=== PATIENT | male | born 1950 | race Caucasian/White ===

== ENCOUNTER 2018-07-30 09:55 | Outpatient (CLI) | payer MEDICARE, BC ==
--- NOTE | 2018-07-30 11:50 | ULT ---
ABDOMINAL AORTIC ULTRASOUND: Indication: Abdominal aortic aneurysm screening. Technique: Grayscale, color doppler and spectral doppler images were obtained of the abdominal aorta. FINDINGS: The proximal abdominal aorta measures 1.8 cm in its greatest AP dimension. The midabdominal aorta will sures 1.9 cm in its greatest dimension. The distal abdominal aorta measures 1.7 cm. There is antegrad e waveforms seen within the abdominal aorta. IMPRESSION: No evidence of aneurysmal dilatation of the abdominal aorta. POS: [facility]
== END 2018-07-30 09:56 | disposition home or self-care (01) ==
LOC: SCSULT 09:55
PROVIDERS: ATTEND Family Medicine
DX: Z13.6 Encounter for screening for cardiovascular disorders (principal)
CPT/HCPCS: 76706

== ENCOUNTER 2018-08-13 08:18 | Outpatient (CLI) | payer MEDICARE, BC ==
--- NOTE | 2018-08-13 10:11 | CT ---
LOW DOSE CT PULMONARY LUNG SCAN: CT CHEST NONCONTRAST: INDICATIONS: Pulmonary screening. History of prior smoking. FINDINGS: There is a 6 mm ground glass, noncalcified nodule of the lateral subpleural aspect of the right middl e lobe. Additional multifocal punctate areas of subpleural nodularity are present, superimposed upon subpleural ground glass and mild interstitial prominence. No effusion or lobar consolidation. Ther e is vascular disease. Scattered osseous degenerative changes are present. There is a focal kyphosi s of the lower thoracic spine, with partial osseous fusion and anterior wedging, resulting in the foc al area of kyphosis. Evidence of prior granulomatous disease with scattered calcifications. IMPRESSION: Lung-RADS category 8-[id number] followup is suggested. 6 month follow-up low dose screening CT is recommended for documentation of size stability. CODE LN POS: [facility]
== END 2018-08-13 08:19 | disposition home or self-care (01) ==
LOC: CT 08:18
PROVIDERS: ATTEND Family Medicine
DX: Z87.891 Personal history of nicotine dependence (principal)
CPT/HCPCS: G0297

== ENCOUNTER 2019-08-14 11:41 | Outpatient (CLI) | payer MEDICARE, BC ==
--- NOTE | 2019-08-14 14:21 | CT ---
CT LOW DOSE LUNG SCAN PERFORMED WITHOUT CONTRAST: Date: 08/14/19 HISTORY: Follow-up of 6 mm ground-glass nodule right middle lobe. Smoker for 35 years. COMPARISON: 08/13/18 study. FINDINGS: The lungs are clear of any infiltrative process. No pleural effusions are identified. The lateral segment right middle lobe pulmonary nodule, which is pleural based, seen on axial image 1 58, is stable at 6-7 mm. There are no new nodules identified. This density actually has somewhat more of a linear than nodular component when viewed on the sagittal images and coronal views, and probabl y just represents scar. Calcified hilar and mediastinal lymph nodes are seen. There are coronary artery calcifications noted. Visualized liver parenchyma shows no focal finding. IMPRESSION: 1. Lung-RADS Category 2. Recommend continued 12 month follow-up. 2. Subcategory S. This is related to the presence of coronary calcifications. POS: [facility]
== END 2019-08-14 11:42 | disposition home or self-care (01) ==
LOC: CT 11:41
PROVIDERS: ATTEND Family Medicine
DX: Z87.891 Personal history of nicotine dependence (principal); I25.10 Atherosclerotic heart disease of native coronary artery without angina pectoris; R91.1 Solitary pulmonary nodule
CPT/HCPCS: G0297

== ENCOUNTER 2019-08-17 16:18 | Inpatient (IN) | payer MEDICARE, BC ==
[2019-08-17] MEDS ORDERED: Acetaminophen 500 MG TAB ONE (16:31)
--- NOTE | 2019-08-17 17:10 | RAD ---
EXAM: Chest 2 views: HISTORY: Fever COMPARISON: Chest CT, 08/14/2019 FINDINGS: Evidence for kyphosis at the upper lumbar thoracic vertebral column. Heart size:Within normal limits. Lungs:Clear of acute process. Atherosclerotic changes of the aorta. No confluent pneumonia, overt edema, pleural effusion, pneumothorax, or other significant acute proce ss. IMPRESSION: Stable exam. Atherosclerosis of the aorta. No acute intrathoracic disease.
[2019-08-17 17:17] LABS: Band 39 % (5-11); Lymphocytes 1 % (21-51); MDiff Complete? YES; Mean Corpuscular HGB CONC 35.4 g/dL (32.0-36.0); Mean Corpuscular Hemoglobin 32.6 pg (27.0-31.0); Mean Corpuscular Volume 92.2 fL (78.0-98.0); Mean Platelet Volume 6.8 fL (7.4-10.4); Monocytes 2 % (0-10); Neutrophil 57 % (42-75); Platelet Count 125 thou/uL (130-400); Platelet Morphology Comment Appears Decreased; RBC Distribution Width 11.3 % (11.5-14.5); Red Blood Cell (RBC) Count 4.59 mill/uL (4.70-6.10); White Blood Cell (WBC) Count 12.5 thou/uL (4.8-10.8)
[2019-08-17 17:23] LABS: ALT (SGPT) 30 U/L (8-55); AST (SGOT) 40 U/L (5-34); Alkaline Phosphatase 46 U/L (40-110); Anion Gap 18 mmol/L (10-20); BUN (Urea Nitrogen) 24 mg/dL (8.4-25.7); Bilirubin, Total 0.9 mg/dL (0.2-1.2); Calc. Creatinine Clearance 0 mL/min (70-130); Calcium 9.1 mg/dL (7.8-10.44); Carbon Dioxide 19 mmol/L (23-31); Chloride 105 mmol/L (98-107); Estimated GFR-MDRD 57; Globulin 2.8 g/dL (2.4-3.5); Glucose 127 mg/dL (80-115); Potassium 3.8 mmol/L (3.5-5.1); Protein, Total 6.8 g/dL (5.8-8.1); Sodium 138 mmol/L (136-145)
[2019-08-17 17:40] LABS: CKMB 1.4 ng/mL (0-6.6)
[2019-08-17] MEDS ORDERED: Piperacillin/Tazobactam 4.5 GM VIAL ONE (18:09)
[2019-08-17] MEDS ORDERED: Sodium Chloride 0.9% 100 ML ONE (18:11)
[2019-08-17 18:37] LABS: Bilirubin Small (Negative); Blood, Urine Negative (Negative); Clarity Slightly Cloudy (Clear); Glucose, Urine (Dipstick) Negative (Negative); Leukocyte Negative (Negative); Nitrite Negative (Negative); Protein, Urine (Dipstick) 30 mg/dL (Neg-Trace); Urobilinogen 0.2 mg/dL (Less than 2)
[2019-08-17 18:39] LABS: Bacteria/HPF Rare-Few HPF (None Seen); RBC/HPF 0-3 HPF (0-3); Squamous Epithelial 0-3 HPF (0-3); WBC/HPF 0-3 HPF (0-3)
[2019-08-17 18:40] LABS: Mucous/LPF 1+ LPF (<2+)
[2019-08-17 19:49] LABS: Troponin I 0.046 ng/mL (< 0.028)
[2019-08-17] MEDS ORDERED: Sodium Chloride 0.9% 1,000 ML IV SCH (22:15)
[2019-08-17] MEDS ORDERED: Ondansetron ODT 4 MG TAB PO PRN (22:22)
[2019-08-17] MEDS ORDERED: Acetaminophen 325 MG TAB PO PRN (22:22)
[2019-08-17] MEDS: Sodium Chloride 0.9% 1,000 ML IV SCH (22:54)
--- NOTE | 2019-08-17 23:00 | PDOC.EVN ---
Event Note - Event Note Event Note: [id number]
[2019-08-17 23:07] LABS: Troponin I 0.025 ng/mL (< 0.028)
[2019-08-17 23:17] VITALS: BMI 27.0
[2019-08-17] MEDS: Piperacillin/Tazobactam 3.375 GM in Sodium Chloride 0.9% 100 ML IVPB SCH (23:33)
--- NOTE | 2019-08-17 23:37 | HP ---
CHIEF COMPLAINT: Nausea and fever. HISTORY OF PRESENT ILLNESS: Mr. Moss is a 68-year-old male with past medical history of hypertension, proteinuria? on ramipril, hyperlipidemia, presented to the emergency room with nausea, fever, and chills that started last night. The patient initially went to Urgent Care, where his blood pressure was low and systolic in the 80s. The patient was started on IV fluids. In the emergency room, patient's systolic blood pressure was 100. The patient had fever as high as 103.9. Also, there was change in his mental status as per family. Workup in the emergency room including chest x-ray, urinalysis unremarkable. The patient continued IV fluids. Septic workup done including blood cultures. The patient is started on IV antibiotic. The patient is being admitted to the hospital for further management. PAST MEDICAL HISTORY: 1. Hypertension. 2. Hyperlipidemia. 3. Proteinuria. PAST SURGICAL HISTORY: Tonsillectomy. SOCIAL HISTORY: Denies smoking, alcohol drinking, or drug abuse. FAMILY HISTORY: Reviewed and noncontributory. ALLERGIES: NO KNOWN ALLERGIES. HOME MEDICATIONS: Please see home medication reconciliation form for updated medications. REVIEW OF SYSTEMS: Review of 14 systems negative except what is mentioned in the history of present illness. PHYSICAL EXAMINATION: GENERAL: The patient is awake, alert. VITAL SIGNS: Temperature 100.7, T-max 103.9, blood pressure 102/64, pulse 76, respiratory rate is 16, pulse oximetry 95%. HEAD AND NECK: Normocephalic and atraumatic. Neck is supple. No JVD. CHEST: Fair with bilateral air entry. HEART: S1, S2. Regular. ABDOMEN: Soft, nontender. Bowel sounds present. NEUROLOGIC: Awake, alert, oriented x3. PSYCH: Normal mood. EXTREMITIES: No clubbing or cyanosis. LABORATORY DATA: WBC count is 12.5 with 39% bands, platelets 125, hemoglobin 15, glucose is 127, AST is 40. Initial troponin is 0.05, repeated troponin 0.04. ASSESSMENT: 1. Fever, source?.. 2. Nausea. 3. Bandemia. 4. Hypotension. 5. History of hypertension. 6. Hyperlipidemia. PLAN: 1. Admit. 2. Septic workup including blood cultures. 3. The patient is started on IV Zosyn, will continue for now. 4. IV fluid hydration. 5. If fever persists, consider Infectious Disease consultation in a.m. 6. Reconcile home medications. 7. DVT prophylaxis. Low molecular weight heparin. 8. Expected length of stay two midnights or more. Job ID: [id number]
[2019-08-18] MEDS: Piperacillin/Tazobactam 3.375 GM in Sodium Chloride 0.9% 100 ML IVPB SCH (05:07)
[2019-08-18] MEDS: Sodium Chloride 0.9% 1,000 ML IV SCH ×4 (05:09→23:55)
[2019-08-18 05:58] LABS: ALT (SGPT) 46 U/L (8-55); AST (SGOT) 79 U/L (5-34); Albumin 3.3 g/dL (3.4-4.8); Alkaline Phosphatase 31 U/L (40-110); Anion Gap 9 mmol/L (10-20); BUN (Urea Nitrogen) 22 mg/dL (8.4-25.7); Bilirubin, Total 0.9 mg/dL (0.2-1.2); Calc. Creatinine Clearance 81 mL/min (70-130); Calcium 7.9 mg/dL (7.8-10.44); Carbon Dioxide 24 mmol/L (23-31); Chloride 110 mmol/L (98-107); Estimated GFR-MDRD 68; Globulin 2.3 g/dL (2.4-3.5); Glucose 126 mg/dL (80-115); Potassium 4.2 mmol/L (3.5-5.1); Protein, Total 5.6 g/dL (5.8-8.1); Sodium 139 mmol/L (136-145)
[2019-08-18 06:49] LABS: Hemoglobin 13.3 g/dL (14.0-18.0); Mean Corpuscular HGB CONC 33.5 g/dL (32.0-36.0); Mean Corpuscular Hemoglobin 31.6 pg (27.0-31.0); Mean Corpuscular Volume 94.1 fL (78.0-98.0); Mean Platelet Volume 7.9 fL (7.4-10.4); Platelet Count 86 thou/uL (130-400); RBC Distribution Width 11.6 % (11.5-14.5); White Blood Cell (WBC) Count 13.2 thou/uL (4.8-10.8)
[2019-08-18 07:38] LABS: Band 61 % (5-11); Lymphocytes 2 % (21-51); MDiff Complete? YES; Metamyelocyte 4 % (0-0); Monocytes 1 % (0-10); Neutrophil 32 % (42-75); Platelet Morphology Comment Appears Decreased; Polychromasia SLIGHT = 2-3 cells (100X) (0-2/hpf); Vacuoles SLIGHT
[2019-08-18 09:06] LABS: Band 60 % (5-11); Hemoglobin 13.6 g/dL (14.0-18.0); Lymphocytes 5 % (21-51); MDiff Complete? YES; Mean Corpuscular HGB CONC 34.2 g/dL (32.0-36.0); Mean Corpuscular Hemoglobin 32.7 pg (27.0-31.0); Mean Corpuscular Volume 95.7 fL (78.0-98.0); Mean Platelet Volume 7.7 fL (7.4-10.4); Metamyelocyte 1 % (0-0); Monocytes 2 % (0-10); Neutrophil 32 % (42-75); Platelet Count 86 thou/uL (130-400); Platelet Morphology Comment Appears Decreased; Polychromasia SLIGHT = 2-3 cells (100X) (0-2/hpf); RBC Distribution Width 11.6 % (11.5-14.5); Red Blood Cell (RBC) Count 4.14 mill/uL (4.70-6.10); Vacuoles MODERATE
[2019-08-18 09:09] LABS: HBCM Index 0.04 S/CO (0-0.79); HBSAg Index 0.23 S/CO (0-0.99); HIV (1/2) Antibody/Antigen Non-Reactive (NonReactive); Hep A IgM AB Non-Reactive (NonReactive); Hep A IgM S/CO 0.09 S/CO (0-0.79); Hep B Surf Ag Non-Reactive S/CO (NonReactive); Hep C IgG Ab Non-Reactive (NonReactive); Hep C Index 0.05 S/CO (0-0.79); Hepatitis B Core IgM Abs Non-Reactive (NonReactive)
[2019-08-18] MEDS: Enoxaparin Sodium 40 MG/0.4 ML SYRINGE SC SCH (09:46)
--- NOTE | 2019-08-18 10:46 | ULT ---
BILATERAL LOWER EXTREMITY VENOUS DOPPLER ULTRASOUND: HISTORY: Bilateral lower extremity edema and pain. TECHNIQUE: Carballo scale ultrasound with color flow and spectral Doppler imaging of the deep venous system of the l ower extremities is performed bilaterally. FINDINGS: There is good flow, compression, and augmentation in the common femoral, femoral, deep femoral, popli teal, posterior tibial, and greater saphenous veins. IMPRESSION: No evidence of deep vein thrombosis in either lower extremity. POS: [facility]
--- NOTE | 2019-08-18 16:01 | PDOC.HOSPP ---
- Subjective Encounter Date: 08/18/19 Encounter Time: 10:20 Subjective: no fever after hospitalization had congestion of upper airway 3 days back no abd pain or back pain h/o scoliosis with prior minimally invasive intervention (no metal implanted per patient), no pain in his spine now no diarrhea, has some dry cough. - Objective Vital Signs & Weight: Vital Signs (12 hours) Temp Pulse Resp BP Pulse Ox 08/18/19 11:07 98.5 F 67 24 H 100/57 L 96 08/18/19 07:59 97.7 F 62 12 102/57 L 98 08/18/19 04:17 97.4 F L 63 16 96/56 L Weight Weight 188 lb 9 oz Result Diagrams: 08/18/19 08:15 08/18/19 05:19 Hospitalist ROS - Medication Medications: Active Medications Generic Name Dose Route Start Last Admin Trade Name Freq PRN Reason Stop Dose Admin Enoxaparin Sodium 40 mg 08/18/19 09:00 08/18/19 09:46 Lovenox SC 40 mg 0900 RAIZA Administration Sodium Chloride 1,000 mls @ 125 mls/hr 08/17/19 22:45 08/18/19 05:09 Normal Saline 0.9% IV 1,000 mls .Q8H RAIZA Administration - Exam General Appearance: NAD, awake alert Eye: PERRL, anicteric sclera ENT: no oropharyngeal lesions, moist mucosa Neck: supple, no JVD Heart: RRR, no murmur Respiratory: no wheezes, no rales Gastrointestinal: soft, non-tender, non-distended, normal bowel sounds Extremities: no cyanosis, no edema Neurological: cranial nerve grossly intact, no focal deficits Psychiatric: normal affect, A&O x 3 Hosp A/P (1) Sepsis Code(s): A41.9 - SEPSIS, UNSPECIFIED ORGANISM Status: Acute Qualifiers: Sepsis type: sepsis due to unspecified organism (2) Hypotension Status: Acute (3) Fever Code(s): R50.9 - FEVER, UNSPECIFIED Status: Acute Qualifiers: Fever type: unspecified Qualified Code(s): R50.9 - Fever, unspecified (4) Nausea & vomiting Code(s): R11.2 - NAUSEA WITH VOMITING, UNSPECIFIED Status: Resolved (5) HTN (hypertension) Code(s): I10 - ESSENTIAL (PRIMARY) HYPERTENSION Status: Chronic Qualifiers: Hypertension type: essential hypertension Qualified Code(s): I10 - Essential (primary) hypertension (6) H/O scoliosis Code(s): Z87.39 - PERSONAL HISTORY OF DISEASES OF THE MS SYS AND CONN TISS Status: Chronic - Plan await cultures, viral upper airway pcr usg venous doppler is -ve abd ct results are pending had recent CT chest for chronic right lung nodule stable from last 3 yrs on zosyn continue iv fluids, still hypotensive with 60% bands will consult hiv, hep panel, ldh, flow cytometry
--- NOTE | 2019-08-18 19:25 | CT ---
CT OF THE ABDOMEN AND PELVIS: Date: 08-18-19 Comparison: None. History: Fever, sepsis. Technique: Axial CT imaging at 5 mm intervals from lung bases through pubic symphysis with IV and ora l contrast. Coronal and sagittal reformatted imaging obtained. FINDINGS: Two peripheral pulmonary nodules are noted in the right lung base, unchanged when compared to CT exam ination of the chest performed 03-22-16. There is no free intraperitoneal air or fluid noted. There are a few scattered subcentimeter hypodensities within the hepatic parenchyma, too small to vivian racterize. The gallbladder demonstrates a grossly unremarkable CT appearance. The spleen, pancreas, a drenal glands, and kidneys demonstrate no acute findings. There is mild diverticulosis of the sigmoid colon with no evidence for diverticulitis. The appendix is unremarkable. No abdominal or pelvic lymphadenopathy is noted. There is mild atherosclerotic calcification of the infrarenal abdominal aorta and the pelvic arterial structures. Review of the osseous structures demonstrate severe degenerative changes of the spine, particularly t he thoracolumbar junction and the lower lumbar spine. There is associated scoliosis with apex to the left at the T12-L1 level and apex to the right within the lower lumbar spine. There is no worrisome l ytic or blastic bone lesion. There appears to be partial vertebral body fusion within the lower thoracic spine involving the T10 a nd T11 vertebral bodies. IMPRESSION: No evidence for free intraperitoneal air or bowel obstruction. Incidental findings as described above . POS: [facility]
[2019-08-18] MEDS: Atorvastatin Calcium 20 MG TAB PO SCH (20:30)
[2019-08-19] MEDS: Enoxaparin Sodium 40 MG/0.4 ML SYRINGE SC SCH (08:36)
[2019-08-19] MEDS: Sodium Chloride 0.9% 1,000 ML IV SCH ×2 (08:36→17:31)
[2019-08-19 09:40] LABS: #Eosinphils 0.1 thou/uL (0.0-0.7); #Lymphocytes 0.9 thou/uL (1.20-3.40); #Monocytes 0.5 thou/uL (0.11-0.59); #Neutrophils 7.1 thou/uL (1.40-6.50); %Basophils 0.4 % (0.0-1.0); %Eosinophils 1.2 % (0.0-10.0); %Lymphocytes 10.1 % (21.0-51.0); %Monocytes 6.3 % (0.0-10.0); Hemoglobin 13.7 g/dL (14.0-18.0); Mean Corpuscular HGB CONC 35.2 g/dL (32.0-36.0); Mean Corpuscular Volume 93.8 fL (78.0-98.0); Mean Platelet Volume 9.7 fL (7.4-10.4); Platelet Count 57 thou/uL (130-400); RBC Distribution Width 11.4 % (11.5-14.5); Red Blood Cell (RBC) Count 4.16 mill/uL (4.70-6.10); White Blood Cell (WBC) Count 8.7 thou/uL (4.8-10.8)
[2019-08-19 09:47] LABS: Anion Gap 11 mmol/L (10-20); BUN (Urea Nitrogen) 14 mg/dL (8.4-25.7); Calc. Creatinine Clearance 101 mL/min (70-130); Calcium 8.3 mg/dL (7.8-10.44); Carbon Dioxide 23 mmol/L (23-31); Chloride 110 mmol/L (98-107); Estimated GFR-MDRD 88; Glucose 114 mg/dL (80-115); Potassium 3.9 mmol/L (3.5-5.1); Sodium 140 mmol/L (136-145)
--- NOTE | 2019-08-19 13:40 | PDOC.HOSPP ---
- Subjective Encounter Date: 08/19/19 Encounter Time: 12:00 Subjective: no fever, feels good - Objective Vital Signs & Weight: Vital Signs (12 hours) Temp Pulse Resp BP Pulse Ox 08/19/19 11:22 98.6 F 79 20 131/78 98 08/19/19 08:36 98 08/19/19 08:00 98.1 F 72 20 122/77 96 Weight Weight 188 lb 9 oz I&O: 08/18/19 08/19/19 08/20/19 06:59 06:59 06:59 Intake Total 2345 Balance 2345 Result Diagrams: 08/19/19 09:07 08/19/19 09:07 Hospitalist ROS - Medication Medications: Active Medications Generic Name Dose Route Start Last Admin Trade Name Freq PRN Reason Stop Dose Admin Atorvastatin Calcium 20 mg 08/18/19 21:00 08/18/19 20:30 Lipitor PO 20 mg HS RAIZA Administration Enoxaparin Sodium 40 mg 08/18/19 09:00 08/19/19 08:36 Lovenox SC 40 mg 0900 RAIZA Administration Sodium Chloride 1,000 mls @ 125 mls/hr 08/17/19 22:45 08/19/19 08:36 Normal Saline 0.9% IV 1,000 mls .Q8H RAIZA Administration - Exam General Appearance: NAD, awake alert Eye: PERRL, anicteric sclera ENT: no oropharyngeal lesions, moist mucosa Neck: supple, no JVD Heart: RRR, no murmur Respiratory: no wheezes, no rales Gastrointestinal: soft, non-tender, normal bowel sounds Extremities: no cyanosis, no edema Neurological: cranial nerve grossly intact, no focal deficits Psychiatric: normal affect, A&O x 3 Hosp A/P (1) Sepsis Code(s): A41.9 - SEPSIS, UNSPECIFIED ORGANISM Status: Acute Qualifiers: Sepsis type: sepsis due to unspecified organism (2) Hypotension Status: Resolved (3) Fever Code(s): R50.9 - FEVER, UNSPECIFIED Status: Resolved Qualifiers: Fever type: unspecified Qualified Code(s): R50.9 - Fever, unspecified (4) Nausea & vomiting Code(s): R11.2 - NAUSEA WITH VOMITING, UNSPECIFIED Status: Resolved (5) HTN (hypertension) Code(s): I10 - ESSENTIAL (PRIMARY) HYPERTENSION Status: Chronic Qualifiers: Hypertension type: essential hypertension Qualified Code(s): I10 - Essential (primary) hypertension (6) H/O scoliosis Code(s): Z87.39 - PERSONAL HISTORY OF DISEASES OF THE MS SYS AND CONN TISS Status: Chronic - Plan mora cultures, viral pcr -ve usg venous doppler is -ve abd ct results no ac pathology, flow cytometry no myeloproliferative disorder had recent CT chest for chronic right lung nodule stable from last 3 yrs on zosyn continue iv fluids bandemia resolved this am await opinion dc plan in am
[2019-08-19] MEDS: Atorvastatin Calcium 20 MG TAB PO SCH (20:14)
--- NOTE | 2019-08-19 22:04 | CON ---
DATE OF CONSULTATION: 08/19/2019 REASON FOR CONSULTATION: Fever. HISTORY OF PRESENT ILLNESS: A 68-year-old, history of hyperlipidemia, hypertension, who lives in [facility] and developed fever 1 or 2 days before admission, was brought to the emergency room and admitted, given IV fluids and broad-spectrum antimicrobial therapy. He has noticeable bandemia with worsening thrombocytopenia. We were asked just to evaluate the patient. He is feeling now back to normal actually. Denies any headaches. No visual symptoms, sore throat, odynophagia, or dysphagia. No back pain. No cough. No sputum production. No abdominal pain or diarrhea. No genitourinary symptoms. No joint symptoms. No skin disorder. He lives in close to the [facility] and . He was planting some bushes and he does not remember any tick or insect bites otherwise, but he has one dog at home. PAST MEDICAL HISTORY: Hypertension, hyperlipidemia. ALLERGIES: NONE. MEDICATIONS: At home, 1. Simvastatin. 2. Ramipril. 3. Aspirin. Here, he is on 1. Ondansetron. 2. Atorvastatin. 3. Enoxaparin. 4. Tylenol. 5. Had been on Zosyn. FAMILY HISTORY: Noncontributory. SOCIAL HISTORY: Quit smoking many years ago. He is and retired accountant tax. PHYSICAL EXAMINATION: VITAL SIGNS: Here in the hospital, he has been afebrile. BP 130/78, pulse 79, respirations 20, O2 saturation 98. SKIN: Normal. There is no lymphadenopathy. HEENT: Ocular movements conjugate. Sclerae are white. Pupils are equal. Oral cavity is normal. BACK: Not tender. LUNGS: Clear. HEART: S1 and S2. Regular rate with a soft aortic murmur. ABDOMEN: Soft, not distended or tender. No ascites. No bladder distention. EXTREMITIES: No joint inflammatory activity. Moves extremities equally. NEUROLOGIC: Nonfocal. LABORATORY DATA: White cell count is 12.5 and now is 8.7, hemoglobin is at 13.7 , platelets are down to 57,000. Sodium 140, creatinine 0.87, AST 79, LDH 221, albumin 3.3. Urinalysis was normal except for small bilirubin, 30 protein. Hepatitis serology, HIV serology negative. There is a flow cytometry which showed increased CD4, suppressor T-cells and microbiology, respiratory virus PCR negative. Two sets of blood cultures at 48 hours, no growth. Abdomen and pelvis CT with no problems of note. Some incidental findings including subcentimeter hypodensities within the hepatic parenchyma, too small to characterize. There is a chest x-ray with stable exam and there is a CT of lung which is a followup of lung nodules which showed stability with continuing followup recommended. ASSESSMENT: 1. Prior history of smoking. 2. Hypertension, hyperlipidemia. 3. Febrile illness with neutrophilia, with marked bandemia and thrombocytopenia. DISCUSSION: Differential diagnosis includes intracellular bacteria such as Rickettsia, Ehrlichia, Bartonella, Borrelia, noninfectious disorder including possibility of immune thrombocytopenic purpura, which is less likely. Thrombotic thrombocytopenic purpura is pretty much ruled out. Endocarditis with bacteremia is another consideration, but his blood cultures are negative. We will order a 2D echocardiogram to evaluate the heart valve murmur. If that check is okay, then he can be discharged on oral doxycycline for followup in the outpatient setting. We will need to make sure the blood cultures are finalized negative. Job ID: [id number] [facility]ITAL[facility]
[2019-08-20] MEDS: Sodium Chloride 0.9% 1,000 ML IV SCH ×2 (00:32→05:35)
[2019-08-20 05:55] LABS: #Basophils 0.1 thou/uL (0.0-0.2); #Eosinphils 0.2 thou/uL (0.0-0.7); #Lymphocytes 1.2 thou/uL (1.20-3.40); #Monocytes 0.7 thou/uL (0.11-0.59); #Neutrophils 5.8 thou/uL (1.40-6.50); %Basophils 0.8 % (0.0-1.0); %Eosinophils 2.8 % (0.0-10.0); %Lymphocytes 15.2 % (21.0-51.0); %Monocytes 8.3 % (0.0-10.0); %Neutrophils 72.9 % (42.0-75.0); Hemoglobin 12.4 g/dL (14.0-18.0); Mean Corpuscular HGB CONC 35.1 g/dL (32.0-36.0); Mean Corpuscular Hemoglobin 32.8 pg (27.0-31.0); Mean Corpuscular Volume 93.6 fL (78.0-98.0); Mean Platelet Volume 8.9 fL (7.4-10.4); Platelet Count 58 thou/uL (130-400); RBC Distribution Width 11.4 % (11.5-14.5); Red Blood Cell (RBC) Count 3.78 mill/uL (4.70-6.10)
[2019-08-20] MEDS ORDERED: Ramipril 5 MG CAP PO SCH (09:00)
--- NOTE | 2019-08-20 16:27 | PRG ---
DATE OF SERVICE: 08/20/2019 SUBJECTIVE: Feeling well. No headaches. No shortness of breath or chest pain. No abdominal pain or diarrhea. No vomiting. No bleeding. No genitourinary symptoms. OBJECTIVE: VITAL SIGNS: Temperature has been normal. BP 127/77, pulse 97. SKIN EXAM: Normal. LUNGS: Clear. HEART: S1 and S2. Regular rate. ABDOMEN: Soft. Not distended or tender. No ascites. No bladder distention. NEURO EXAM: No neurological abnormality. LABORATORY DATA: White cell count is 8.0, hemoglobin 12.4, MCV 93, and platelets are 58. Creatinine 0.87. ASSESSMENT AND DISCUSSION: Hypertension, febrile illness with neutrophilia, bandemia, and thrombocytopenia with improvement. Again, the differential diagnosis includes intracellular bacteria such as Rickettsia, Ehrlichia, Bartonella, or Borrelia, a noninfectious disorder, which is less likely in view of the spontaneous improvement such as ITP and bacteremia with the above findings, which respond to antimicrobial therapy. Blood cultures are negative. The echocardiogram is pending and we will discharge the patient to followup in the outpatient setting and discharge him on oral doxycycline for 10 days. Job ID: [id number]
[2019-08-20 17:06] VITALS: BP 126/78; TEMP 98.3
--- NOTE | 2019-08-20 18:34 | DIS ---
DATE OF ADMISSION: 08/17/2019 DATE OF DISCHARGE: 08/20/2019 DISCHARGE DISPOSITION: To home. PRIMARY DISCHARGE DIAGNOSES: Febrile illness with neutrophilia and thrombocytopenia with unclear etiology. Initial sepsis with hypotension secondary to above, resolved. Nausea and vomiting resolved. Hypertension, history of scoliosis. PROCEDURES DONE DURING HOSPITALIZATION: Blood and urine cultures were negative. Upper respiratory viral PCR was negative. Ultrasound and venous Doppler of lower extremities negative. Abdomen and pelvis CT scan showed no acute pathology. Flow cytometry done showed no myeloproliferative disorder. Recent CT chest done showed chronic right lung nodule, which is stable from last 3 years. Influenza A and B antigens were negative. Discharge white count of 8, H and H 12 and 35, platelet count 59 with no bands seen. Admitting white count was 12.5 with 39% bands and 57% neutrophils. Albumin 3.3. LDH was 221, BUN 24, creatinine 1.2. Discharge BUN and creatinine 14 and 0.8. UA did not show any sign of infection. Acute hepatitis panel negative. HIV 1 and 2 negative. INPATIENT CONSULT: Dr. Escalante for Infectious Disease. DISCHARGE PLAN: The patient is to follow up with Dr. Escalante in 1 week, Dr. Norah Latif, his primary care physician in 1 week. DISCHARGE MEDICATIONS: 1. Doxycycline 100 mg p.o. twice daily. 2. Simvastatin 40 mg p.o. at bedtime. 3. Ramipril 5 mg p.o. daily. BRIEF COURSE DURING HOSPITALIZATION: Patient initially came to ER with complaints of nausea, vomiting, and fever. He had temperature of 103.9 degrees at home and his systolic blood pressures were in the 90s on arrival. He was essentially admitted for fever of unknown origin with sepsis and bandemia. He has had complete workup done as mentioned above, all of which were negative. The patient initially was on Zosyn, which was discontinued. All through his stay here, the patient did not develop any fever. His nausea and vomiting completely resolved. He did not have any upper respiratory complaints or abdominal pain or diarrhea. Mr. Moss did not complain of any back pain, although he has history of prior minimally invasive surgery and prior history of scoliosis. Blood cultures were negative. Respiratory virus panel PCR was negative as well. He has had low platelets, initial platelet count was 125 on admission, currently on the day of discharge is 58. In view of the patient's febrile illness, neutrophilia and thrombocytopenia, a broad differential diagnosis included intracellular bacteria such as Rickettsia, Ehrlichia, Bartonella, and Borrelia. He was discharged home on doxycycline 100 mg twice daily for a total of 10 days. He will follow up with Dr. Escalante in [address] Norah Latif, his primary care physician in 1 week. The patient did not want to wait any longer in the hospital and wanted to leave today. Please note, I have seen and examined the patient on the day of discharge. Job ID: [id number] [facility]
== END 2019-08-20 17:04 | disposition home or self-care (01) | DRG 872 ==
LOC: SCSER 16:18 → 2NO 18:33 → T4-A 08-18 17:03
PROVIDERS: ADMIT Internal Medicine; ATTEND Internal Medicine
DX: A41.9 Sepsis, unspecified organism (principal); A79.9 Rickettsiosis, unspecified; A77.40 Ehrlichiosis, unspecified; A44.0 Systemic bartonellosis; E78.5 Hyperlipidemia, unspecified; E78.00 Pure hypercholesterolemia, unspecified; I10 Essential (primary) hypertension; M41.9 Scoliosis, unspecified; Z87.891 Personal history of nicotine dependence; Z79.899 Other long term (current) drug therapy; Z79.82 Long term (current) use of aspirin; D69.6 Thrombocytopenia, unspecified; D72.0 Genetic anomalies of leukocytes
CPT/HCPCS: 36415; 71046; 74177; 80048; 80053; 80074; 81003; 81015; 82553; 83605; 83615; 83880; 84484; 85025; 85060; 87040; 87389; 87633; 87804; 88184; 93005; 93306; 93970; 96361; 96365; G0297; J1650; J2543; J3490

== ENCOUNTER 2019-09-25 06:02 | Day surgery (SDC) | payer MEDICARE, BC ==
[2019-09-24 09:07] VITALS: BMI 26.2
[2019-09-25] MEDS ORDERED: PROPOFOL 40 ML ONE (07:48)
[2019-09-25] MEDS ORDERED: PROPOFOL 200 MG/20 ML VIAL ONE (10:07)
--- NOTE | 2019-10-31 13:09 | OP ---
DATE OF PROCEDURE: 09/25/2019 PROCEDURE PERFORMED: Transesophageal echocardiogram. PREPROCEDURE DIAGNOSIS: Severe mitral regurgitation. POSTPROCEDURE DIAGNOSES: Healed vegetation versus torn cord and severe mitral regurgitation. DESCRIPTION OF PROCEDURE: The patient was consented for the procedure. I discussed procedure in full detail with Ajay. Risks included, not limited to the following: Damage to teeth, mouth, back of throat, damage to esophagus requiring emergency surgery as well as reaction to medication. All questions were answered. Given the above, the patient agreed to proceed with above procedure. Propofol was used for conscious sedation. FINDINGS: Overall LVEF estimated at 50% to 55%. The mitral valve is well visualized. There appears to be a small vegetation on the left atrial side of the posterior mitral leaflet. Cannot completely exclude a torn cord. Eccentric anterior jet present. IMPRESSION: 1. Severe mitral regurgitation. 2. Healed vegetation versus a torn cord. 3. LVEF 50% to 55%. Job ID: [id number]
== END 2019-09-25 10:04 | disposition home or self-care (01) ==
LOC: CCL 06:02
PROVIDERS: ATTEND Internal Medicine Cardiovascular Disease
PROC: B24BZZ4 Ultrasonography of Heart with Aorta, Transesophageal (ICD-10-PCS; principal; 2019-09-25)
DX: I34.0 Nonrheumatic mitral (valve) insufficiency (principal); I25.10 Atherosclerotic heart disease of native coronary artery without angina pectoris; J44.9 Chronic obstructive pulmonary disease, unspecified; Z79.82 Long term (current) use of aspirin; Z79.899 Other long term (current) drug therapy; Z87.891 Personal history of nicotine dependence
CPT/HCPCS: 36415; 87040; 93312; J2704

== ENCOUNTER 2019-12-05 08:49 | Outpatient (CLI) | payer MEDICARE, BC ==
--- NOTE | 2019-12-05 11:30 | CT ---
CT ANGIO OF CHEST AND ABDOMEN AND PELVIS PERFORMED WITH AND WITHOUT INTRAVENOUS CONTRAST ENHANCEMENT WITH 3D RECONSTRUCTIONS: HISTORY: Mitral valve disorder. Evaluation for possible surgery. COMPARISON: A 08/18/2019 CT abdomen and pelvis that was performed 08/08/[address] pulmonary lung scan performe d 08/14/2019. FINDINGS: The lungs are clear of any infiltrative process. The approximately 6 mm pleural-based nodular densit y seen within the right middle lobe is a stable finding. There is a 2nd tiny 3-4 mm pleural-based ar ea of nodularity which is present in the anterior segment of the right upper lobe also stable. There are some chronic lung changes. No pleural effusions. There is no significant mediastinal or hilar adenopathy. The thoracic aorta is normal in caliber. N o dissection. The pulmonary arteries are fairly well opacified and there is no evidence for pulmonar y embolus. Calcifications in the mitral valve region are noted. CT ANGIO OF ABDOMEN AND PELVIS PERFORMED WITH AND WITHOUT CONTRAST ENHANCEMENT: The liver, spleen, pancreas, and gallbladder regions all appear unremarkable. Right and left adrenal glands and right and left kidneys are normal in size. There is no significant periaortic or mesenteric adenopathy. Mild colonic diverticulosis is noted mainly related to the sig moid colon. There are atherosclerotic changes of the infrarenal aorta which is normal in caliber. Also atheroscl erotic change within the common iliac arteries. There is no evidence of aneurysm or dissection. The re is no pelvic lymphadenopathy or mass. There is severe scoliotic change to the spine convex to the left and marked arthritic changes. IMPRESSION: 1. Atherosclerotic change of the aorta. No aneurysm or dissection. 2. Two stable right-sided pulmonary nodules measuring approximately 4 and 6 mm in size respectively. 3. Minimal colonic diverticulosis. 4. Severe arthritic changes of the spine and scoliosis. POS: [facility]
[2019-12-05] MEDS ORDERED: Iopamidol-370 76% 500 ML 1 ML ONE (14:26)
== END 2019-12-05 08:50 | disposition home or self-care (01) ==
LOC: BICCT 08:49
PROVIDERS: ATTEND Surgery
DX: I25.10 Atherosclerotic heart disease of native coronary artery without angina pectoris (principal); I05.9 Rheumatic mitral valve disease, unspecified; I70.0 Atherosclerosis of aorta; K57.30 Diverticulosis of large intestine without perforation or abscess without bleeding; M46.90 Unspecified inflammatory spondylopathy, site unspecified; M41.9 Scoliosis, unspecified; R91.8 Other nonspecific abnormal finding of lung field
CPT/HCPCS: 71275; 74174; 82565; Q9967

== ENCOUNTER 2020-09-02 10:55 | Outpatient (CLI) | payer MEDICARE, BC ==
--- NOTE | 2020-09-02 11:38 | CT ---
CT Pulmonary Lung Scan History: Personal history of nicotine abuse. Comparison: CTA chest November 2019. Findings: Lung screening specific (Lung-RADS): Negative. No suspicious pulmonary nodule. Potentially significant incidentals (Lung-RADS category S): New from the comparison examination is a wire along the right lateral hemithorax extending from the right anterior fourth-fifth intercostal space extending along the right minor fissure terminating near the left ventricular apex. Mitral kvng grisel prosthesis is present. Pulmonary incidentals: Low-grade emphysema. Peripheral nodule right lower lobe measures up to 4 mm, u nchanged. Other incidentals: Mild reverse S-shaped scoliosis. No acute thoracic fracture. No acute displaced ri b fracture. IMPRESSION: 1. Lung-RADS Category 2: Benign appearance or behavior. Recommend follow-up screening CT in 12 months . 2. Lung-RADS category S: New lead along the right chest wall extending to the expected location left ventricular apex with new mitral annulus prosthesis. Transcribed Date/Time: 09/02/2020 12:36 PM
== END 2020-09-02 10:56 | disposition home or self-care (01) ==
LOC: BICCT 10:55
PROVIDERS: ATTEND Family Medicine
DX: Z12.2 Encounter for screening for malignant neoplasm of respiratory organs (principal); Z87.891 Personal history of nicotine dependence; R91.1 Solitary pulmonary nodule; Z95.2 Presence of prosthetic heart valve
CPT/HCPCS: G0297

== ENCOUNTER 2021-09-07 12:32 | Outpatient (CLI) | payer MEDICARE, BC | END 2021-09-07 12:33 | disposition home or self-care (01) | LOC: BICCT 12:32 | PROVIDERS: ATTEND Family Medicine | DX: Z12.2 Encounter for screening for malignant neoplasm of respiratory organs (principal); Z87.891 Personal history of nicotine dependence | CPT/HCPCS: 71271 ==